=== PATIENT | male | born 1955 | race Caucasian/White ===

== ENCOUNTER 2016-11-13 07:16 | Emergency (ER) | payer BC ==
--- NOTE | 2016-11-13 07:58 | UC ---
Back Pain HPI - HPI Summary HPI Summary: right lower back pain x 1 day interment lasting for 30 min , pain is sever, radiates to RLQ, + sweating , chills, nausea, no fever - History of Current Complaint Chief Complaint: UCBackPain Stated Complaint: BACK PAIN Time Seen by Provider: 11/13/16 07:35 Hx Obtained From: Patient Onset/Duration: Sudden Onset, Lasting Days - 1, Still Present Timing: Intermittent, Lasting Minutes - 30 Severity Initially: Severe Severity Currently: Moderate Character: Sharp Aggravating: Nothing Alleviating: Nothing Associated Signs And Symptoms: Positive: Flank Pain. Negative: Swelling, Redness, Bruising, Fever, Weakness, Numbness, Tingling, Abdominal Pain, Bladder Incontinence, Bowel Incontinence, Weight Loss - Allergies/Home Medications Allergies/Adverse Reactions: Allergies Allergy/AdvReac Type Severity Reaction Status Date / Time No Known Allergies Allergy Verified 11/13/16 07:27 Home Medications: Home Medications Allopurinol TAB* [Zyloprim 100 MG TAB*] 100 mg PO DAILY 11/13/16 [History Confirmed 11/13/16] Lisinopril TAB* [Prinivil TAB*] 10 mg PO DAILY 11/13/16 [History Confirmed 11/13] Naproxen Sodium [Naproxen Sodium 220 mg] 220 mg PO ONCE PRN 11/13/16 [History Confirmed 11/13/16] Simvastatin TAB(NF) [Zocor(NF)] 10 mg PO DAILY 11/13/16 [History Confirmed 11/13] PMH/Surg Hx/FS Hx/Imm Hx - Additional Past Medical History Additional PMH: hx of high cholesterol - Surgical History Surgical History: None - Family History Known Family History: Positive: Hypertension - Social History Alcohol Use: Daily Alcohol Amount: beer daily Substance Use Type: None Smoking Status (MU): Never Smoked Tobacco Review of Systems Constitutional: Negative Skin: Negative Eyes: Negative ENT: Negative Respiratory: Negative Gastrointestinal: Abdominal Pain, Nausea All Other Systems Reviewed And Are Negative: Yes Physical Exam Triage Information Reviewed: Yes Appearance: Well-Appearing, No Pain Distress, Well-Nourished Vital Signs: Initial Vital Signs Temp 98 F 11/13/16 07:29 Pulse 76 11/13/16 07:29 Resp 16 11/13/16 07:29 BP 116/75 11/13/16 07:29 Pulse Ox 98 11/13/16 07:29 Vital Signs Reviewed: Yes Eyes: Positive: Conjunctiva Clear ENT: Positive: Normal ENT inspection, Hearing grossly normal, Pharynx normal Neck: Positive: Supple, Nontender, No Lymphadenopathy Respiratory: Positive: Chest non-tender, Lungs clear, Normal breath sounds Cardiovascular: Positive: RRR, No Murmur, Pulses Normal Abdomen Description: Positive: Nontender, Soft. Negative: CVA Tenderness (R), CVA Tenderness (L), Distended, Guarding Bowel Sounds: Positive: Present Skin Exam: Normal Back Pain Course/Dx - Differential Dx/Diagnosis Provider Diagnoses: renal colic. kidney stone Discharge - Discharge Plan Condition: Stable Disposition: HOME Prescriptions: Hydrocodone-Acetaminophen [Hydrocodone/Acetaminophen 5-325 mg] 1 tab PO Q4H PRN #20 tab MDD 6 PRN Reason: Pain Sulfamethox/Trimethoprim DS* [Bactrim DS 800/160 TAB*] 1 tab PO BID #14 tab Tamsulosin CAP* [Flomax CAP*] 0.4 mg PO DAILY #10 cap Patient Education Materials: Kidney Stones (ED), Renal Colic (ED) Additional Instructions: follow up in 3 days if not better, may need a CT at that time to see how big and where the stone is follow up with your pcp in 7 to 10 days
== END 2016-11-13 07:58 | disposition home or self-care (01) ==
LOC: UCCORT 07:16
DX: N20.0 Calculus of kidney (principal); E78.00 Pure hypercholesterolemia, unspecified
CPT/HCPCS: 81003; 99202; G0463